=== PATIENT | female | born 1990 | race Caucasian/White ===

== ENCOUNTER 2023-07-02 09:11 | Outpatient (REF) | payer OTHER, SELFPAY ==
[2023-07-02 14:59] LABS: Hemoglobin A1C 5.8 % (<5.7)
[2023-07-02 15:06] LABS: Anion Gap 9.2 mmol/L (3-11); BUN 11 mg/dL (7-18); CO2 26.8 mmol/L (21.0-32.0); CREATININE 0.8 mg/dL (0.55-1.02); Calcium 8.8 mg/dL (8.5-10.1); Calculated LDL 86 mg/dL (<100); Chloride 106 mmol/L (98-107); Cholesterol 160 mg/dL (<200); Estimated GFR 98.48 (mL/min/1.73m2); Glucose 105 mg/dL (74-106); HDL Cholesterol 69 mg/dL (40-60); Potassium 4.3 mmol/L (3.5-5.1); Sodium 142 mmol/L (136-145); Triglyceride 27 mg/dL (<150)
== END 2023-07-02 09:12 | disposition home or self-care (01) ==
LOC: NCHCN 09:11
PROVIDERS: Visit Provider Nurse Practitioner Family
DX: Z00.00 Encounter for general adult medical examination without abnormal findings (principal); R73.01 Impaired fasting glucose; Z13.220 Encounter for screening for lipoid disorders; Z13.228 Encounter for screening for other metabolic disorders
CPT/HCPCS: 80048; 80061; 83036

== ENCOUNTER 2023-07-04 14:59 | Outpatient (REF) | payer OTHER, SELFPAY ==
--- NOTE | 2023-07-04 10:00 | PAPFT_PTH ---
PATIENT: Kayley [place] LOC: [facility]#:[id number] AGE/SX: 33/F ROOM: RE07/04/[address]: Meg Khan : 1990 BED: DIS: 07/04/2023 SPEC #: [id number] RECD: 07/04/23 18:23 STATUS: COURTNEY REQ #: [id number] AMELIA: 07/04/23 10:[address]: Meg Khan DEPT: [facility] Cytology RECD BY: Jennifer Mathis ENTERED: 07/04/23 18:23 SP TYPE: PAPFT ANGEL DR: Unknown,Unknown Tissues: 1 - CX/ENDOCX FOR PAP SMEARS Procedures: PAP THIN PREP/[facility] Screening HPV DNA PROBE Comments: [id number]
== END 2023-07-04 15:00 | disposition home or self-care (01) ==
LOC: NCHCN 14:59
PROVIDERS: Visit Provider Nurse Practitioner Family
DX: Z00.00 Encounter for general adult medical examination without abnormal findings (principal); Z12.4 Encounter for screening for malignant neoplasm of cervix; N72 Inflammatory disease of cervix uteri
CPT/HCPCS: 88142; 87624

== ENCOUNTER 2024-11-16 16:47 | Outpatient (REF) | payer SELFPAY ==
[2024-11-18 13:55] LABS: Bacterial Vaginosis (BV) Negative (Negative); Candida glabrata Negative (Negative); Candida species group Negative (Negative); Chlamydia Result Negative (Negative); GC Result Negative (Negative)
== END 2024-11-16 16:48 | disposition home or self-care (01) ==
LOC: NCHCN 16:47
PROVIDERS: Visit Provider Nurse Practitioner Family
DX: R59.1 Generalized enlarged lymph nodes (principal)
CPT/HCPCS: 81513; 87481; 87491; 87591; 87661